=== PATIENT | female | born 1960 | race African-American/Black ===

== ENCOUNTER 2016-07-12 18:44 | Emergency (ER) | payer SELFPAY ==
[~2016-07-12] VITALS: Ht 167.6 cm; Wt 67.7 kg
[2016-07-12] MEDS ORDERED: METF500T4 PO (18:52)
[2016-07-12] MEDS ORDERED: ATOR40TA28 PO (18:52)
[2016-07-12] MEDS ORDERED: HYDR25TA PO (18:52)
[2016-07-12] MEDS ORDERED: LISI-662 PO (18:52)
[2016-07-12 18:57] LABS: GLUCOSE,POINT OF CARE 108 MG/DL (70-110)
[2016-07-12] MEDS ORDERED: CYCLOBENZAPRINE HCL 10 MG TABLET PO ONE (21:00)
[2016-07-12] MEDS ORDERED: KETOROLAC TROMETHAMINE 30 MG/ML VIAL IM ONE (21:00)
[2016-07-12 21:21] VITALS: BP 121/69
== END 2016-07-12 21:24 | disposition home or self-care (01) ==
LOC: EMS 18:46
DX: M62.838 Other muscle spasm (principal); E11.9 Type 2 diabetes mellitus without complications; I10 Essential (primary) hypertension; V43.62XA Car passenger injured in collision with other type car in traffic accident, initial encounter; Y93.89 Activity, other specified; Y92.89 Other specified places as the place of occurrence of the external cause; Y99.8 Other external cause status
CPT/HCPCS: 72040; 73110; 82962; 96372; 99284; J1885